=== PATIENT | male | born 1980 | race Caucasian/White ===

== ENCOUNTER 2022-08-07 11:45 | Emergency (ER) | payer MEDICAID ==
[~2022-08-07] VITALS: Ht 182.9 cm; Wt 75.0 kg
[2022-08-07 12:06] VITALS: BP 102/73
[2022-08-07] MEDS ORDERED: tetanus & diphtheria toxoid (Td) vaccine 0.5ml IMVAC ONE (13:40)
[2022-08-07] MEDS ORDERED: LIDOcaine 1% W/epiNEPHrine 1:100,000 20ml vial SQ ONE (13:55)
[2022-08-07] MEDS ORDERED: TETanus/Pertussis (Acell)/Diphther VAC/PF (Tdap-Adult) 0.5ml syringe IMVAC ONE (14:25)
== END 2022-08-07 15:35 | disposition home or self-care (01) ==
LOC: ER 11:45
DX: S81.021A Laceration with foreign body, right knee, initial encounter (principal); W19.XXXA Unspecified fall, initial encounter; Y93.89 Activity, other specified; Y92.89 Other specified places as the place of occurrence of the external cause; Y99.8 Other external cause status
CPT/HCPCS: 12032; 90471; 90715; 99284; J7030; A6258; A6449